=== PATIENT | female | born 1960 | race Caucasian/White ===

== ENCOUNTER 2020-03-08 12:38 | Inpatient (IN) | payer BC, SELFPAY ==
[2020-03-08] VITALS (14 sets, daily range): BP systolic 109–147; BP diastolic 73–99; PULSE 74–94; RESP 16–22; TEMP 36.7–36.8; O2SAT 94–98; BMI 34.2; BMI 32.8
--- NOTE | 2020-03-08 12:44 | NURSING ---
NO OLD EKGS
--- NOTE | 2020-03-08 13:06 | EKG12_ITS ---
Test Reason : REPEAT Blood Pressure : / mmHG Vent. Rate : 085 BPM Atrial Rate : 085 BPM P-R Int : 194 ms QRS Dur : 070 ms QT Int : 378 ms P-R-T Axes : 058 004 019 degrees QTc Int : 449 ms Normal sinus rhythm Septal infarct , age undetermined Abnormal ECG When compared with ECG of 08-MAR-2020 12:46, MANUAL COMPARISON REQUIRED, DATA IS UNCONFIRMED Confirmed by TANYA RUIZ ([id number]), assistant film editor ANU MUNOZ ([id number]) on 03/15/2020 9:12:47 AM Referred By: ELMER Confirmed By:TANYA RUIZ
--- NOTE | 2020-03-08 13:06 | RAD_ITS ---
STUDY: X-RAY CHEST REASON FOR EXAM: Female, 60 years old. STRESS INDUCED CHEST PAIN, LIGHTHEADNESS AND TINGLING IN BILATERAL FINGERS. -- HX OF ANXIETY, HTN AND ASTHMA TECHNIQUE: Single AP portable view of the chest. COMPARISON: None. FINDINGS: The lungs are clear and expanded. There is no demonstrated pleural abnormality. Normal size heart. Normal mediastinum and sukumar. Normal visualized pulmonary arteries. Normal visualized aortic arch and descending thoracic aorta. Normal visualized thoracic spine. Normal visualized ribs, clavicles, and shoulders. There is no demonstrated abnormality of the visualized soft tissue structures of the upper abdomen. RAD/Chest 1 View (Portable) IMPRESSION: Normal x-ray examination of the chest. Electronically Signed: Jarod Kat MD at 14:07 EDT Tel , Service support ,
--- NOTE | 2020-03-08 13:09 | ED.VISSUMM ---
- ER Visit Summary Date of Service: 03/08/20 Chief Complaint: Chest pain History of Present Illness: The patient is a 60 F presenting with chest pain. Patient states that she was at her pain management physician's office. They were discussing her Worker's Compensation. She states she was getting upset. She started having mid chest tightness. She started feeling lightheaded and had bilateral hand tingling as well. She has a history of hypertension and anxiety. She has a family history of early heart disease. She is not a smoker. Denies PE/DVT risk factors. Physical Examination: Vitals are stable. Patient is afebrile. Alert no acute distress. HEENT exam is unremarkable. Neck is supple. Lungs are clear and equal bilaterally. Heart is regular rate and rhythm. Abdomen is soft nontender nondistended. Extremities are unremarkable. Skin is warm and dry. No focal neurologic deficit. Remainder of exam is unremarkable. Emergency Department Course and Treatment: EKG is sinus rhythm rate of 78 with no acute ischemic changes. Chest x-ray shows no acute process. CBC, chemistries unremarkable. Troponin is negative. Patient was given aspirin and nitro per EMS. She is chest pain-free on reevaluation. Due to the onset of her symptoms, delta troponin was obtained. Second troponin is 0.619. Patient remains chest pain-free. Discussed with hospitalist and Dr. Lagunas. She will be started on heparin drip. Patient will be admitted. Disposition: Admission Impression: NSTEMI This note was generated with ATOMOO dictation software. It may contain incorrect words, spelling, and punctuation that were not noted in review of the chart prior to signing ED Disposition - Plan for ED Patient: Referrals: Arik Webber MD [Primary Care Provider] -
[2020-03-08 13:13] LABS: Absolute Lymphocyte Count 1.55 X10^3/uL (0.83-4.51); Basophil# 0.03 X10^3/uL; Basophil% 0.7 % (0-1); Eosinophil# 0.08 X10^3/uL; Eosinophils% 1.9 % (0-5); Hematocrit 36.3 % (37-47); Hemoglobin 12.9 g/dL (12.0-15.0); Lymphocyte # 1.55 X10^3/ul (4.0); Mean Corp Hgb Conc 35.5 g/dL (32-36); Mean Corpuscular Hgb 34.2 pg (27.0-32.0); Mean Corpuscular Volume 96.3 fL (81-99); Mean Platelet Vol. 10.9 fl (6.2-12.0); Monocyte# 0.61 X10^3/uL; Monocyte% 14.2 % (0-10); NRBC Flagged by Analyzer 0 % (0-5); Neutrophil # 2.01 X10^3/uL (2.7-7.7); Neutrophil % 46.5 % (47-70); Platelet Count 211 K/mm3 (150-450); RBC Distribution Width CV 11.9 % (11.6-14.6); RBC Distribution Width SD 41.5 fl (35.1-43.9); Red Blood Count 3.77 M/mm3 (4.2-5.4); White Blood Count 4.3 K/mm3 (4.4-11.0)
[2020-03-08 13:28] LABS: Anion Gap 4 (5-15); BUN 19 mg/dL (7-18); BUN/Creat Ratio 25.9 RATIO (10-20); Calcium,Total 8.6 mg/dL (8.5-10.1); Chloride 106 mmol/L (98-107); Creatinine, Serum 0.74 mg/dL (0.55-1.02); EST Glomerular Filtration Rate 86 mL/min (>60); Est Glom Filt Rate - Afr Amer 104 mL/min (>60); Estimated Creatinine Clearance 68.55 ml/min; Glucose 102 mg/dL (74-106); Potassium 3.7 mmol/L (3.5-5.1); Sodium Level 139 mmol/L (136-145)
[2020-03-08] MEDS: Ondansetron 4 MG/2 ML Vial IV (13:37)
[2020-03-08] MEDS: Morphine 4 MG/ML Syringe IV ×2 (13:37→19:18)
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
[2020-03-08] MEDS: LORazepam 1 MG Tablet PO (17:51)
[2020-03-08] MEDS: Heparin Injection (Vial) 5,000 UNIT/ML VIAL 6000 UNIT IV (17:52)
[2020-03-08 18:21] LABS: Partial Thromboplast Time 27.9 Seconds (24.1-36.2)
--- NOTE | 2020-03-08 19:28 | EKG12_ITS ---
Test Reason : AM EKG Blood Pressure : / mmHG Vent. Rate : 072 BPM Atrial Rate : 072 BPM P-R Int : 212 ms QRS Dur : 070 ms QT Int : 404 ms P-R-T Axes : 060 013 030 degrees QTc Int : 442 ms Sinus rhythm with 1st degree A-V block Low voltage QRS (Limb Leads) Confirmed by RACIEL KNUTSON, MELVIN ([id number]), sound editor FLY GUSTAFSON ([id number]) on 03/14/2020 1:09:55 PM Referred By: ALEKSANDAR Confirmed By:MELVIN SCHRADER MD
--- NOTE | 2020-03-08 19:46 | ECHOD_ITS ---
Version 2 Reason For Study: S/P CA Procedure This was a 2D Doppler, Color Flow transthoracic echocardiogram. Exam performed portable in patient room. Left Ventricle Normal LV size. The estimated ejection fraction is 50-55 %. No evidence for diastolic dysfunction. Hpokinesis of the mid septum. Hypokinesis of the mid anterior wall noted in some views but not in others. Right Ventricle Normal RV size. Normal systolic function. Atria Normal left atrium. Normal right atrium. No doppler evidence for ASD. Mitral Valve There is no mitral valve stenosis. Trivial mitral valve insufficiency. Tricuspid Valve There is no tricuspid stenosis. Trivial tricuspid valve insufficiency. Pulmonary artery systolic pressure is 30-35 mmHg. Aortic Valve Trisinus/trileaflet aortic valve. There is no aortic stenosis. No aortic valve insufficiency. Pulmonic Valve There is no pulmonic valvular stenosis. No pulmonic valve insufficiency. Great Vessels Normal aortic root. Pericardium/Pleural No pericardial effusion. MMode/2D Measurements & Calculations LVIDd: 4.5 cm IVSd: 0.97 cm Ao root diam: 3.1 cm LVIDs: 3.0 cm LVPWd: 0.88 cm LA dimension: 3.3 cm RVDd: 3.2 cm FS: 32.0 % LAV(MOD-bp): 62.4 ml LA A4 area: 20.3 cm2 RA A4 area: 15.9 cm2 LAV(MOD-bp) Indexed: 32.8 ml/m2 LAV(MOD-sp2): 65.6 ml LAV(MOD-sp4): 55.4 ml Time Measurements MV dec time: 0.21 sec Doppler Measurements & Calculations MV E max paresh: 93.8 cm/sec Lat Peak E' Paresh: 12.0 cm/sec Med Peak E' Paresh: 11.4 cm/sec MV A max paresh: 64.2 cm/sec E/E' lat: 7.8 E/E' med: 8.3 MV E/A: 1.5 MV V2 max: 86.8 cm/sec MV P1/2t max paresh: 85.7 cm/sec Ao V2 max: 115.9 cm/sec MV max P.0 mmHg MV P1/2t: 80.9 msec Ao max P.4 mmHg MV V2 mean: 59.6 cm/sec MV dec slope: 310.6 cm/sec2 MV mean P.6 mmHg MVA(P1/2t): 2.7 cm2 MV V2 VTI: 22.6 cm LV V1 max: 108.4 cm/sec MR max paresh: 468.9 cm/sec PA V2 max: 124.2 cm/sec LV V1 max P.7 mmHg MR max P.9 mmHg MR mean paresh: 386.3 cm/sec MR mean P.3 mmHg MR VTI: 162.4 cm TR max paresh: 266.3 cm/sec TR max P.4 mmHg Interpretation Summary No evidence for diastolic dysfunction. Trivial mitral valve insufficiency. The estimated ejection fraction is 50-55 %. Ordering Physician: Yvrose Gimenez Referring Physician: Arik Webber Performed By: Robert Bangura RCS
[2020-03-08] MEDS: 0.9% Normal Saline 1,000 ML 75 ML IV (20:00)
--- NOTE | 2020-03-08 21:01 | EKG12_ITS ---
Test Reason : CP Blood Pressure : / mmHG Vent. Rate : 081 BPM Atrial Rate : 081 BPM P-R Int : 194 ms QRS Dur : 070 ms QT Int : 394 ms P-R-T Axes : 049 011 015 degrees QTc Int : 457 ms Normal sinus rhythm Septal NC, age undetermined, cannot be excluded Confirmed by RACIEL KNUTSON, MELVIN ([id number]), desk editor FLY GUSTAFSON ([id number]) on 03/14/2020 1:10:58 PM Referred By: Confirmed By:MELVIN SCHRADER MD
[2020-03-08] MEDS: TICAGRELOR 90 MG TABLET 180 MG PO (22:47)
[2020-03-08] MEDS: Metoprolol Tartrate 25 MG Tablet 12.5 MG PO (22:47)
[2020-03-08] MEDS: Atorvastatin Calcium 40 MG Tablet PO (22:47)
[2020-03-08] MEDS: buPROPion (SR) 100 MG TABLET.SA 200 MG PO (22:47)
[2020-03-08] MEDS: LORazepam 0.5 MG Tablet PO (22:53)
[2020-03-08] MEDS: Albuterol 2.5 MG/3 ML VIAL.NEB. INHALATION (23:43)
[2020-03-09] VITALS (17 sets, daily range): BP systolic 84–111; BP diastolic 50–75; PULSE 61–77; RESP 14–16; TEMP 36.6–36.7; O2SAT 94–97
[2020-03-09 00:06] LABS: Partial Thromboplast Time 203.6 Seconds (24.1-36.2)
[2020-03-09 05:50] LABS: Absolute Lymphocyte Count 1.65 X10^3/uL (0.83-4.51); Absolute Neutrophil Count 2.6 X10^3/uL (2.0-7.7); Basophil# 0.04 X10^3/uL; Basophil% 0.8 % (0-1); Eosinophil# 0.08 X10^3/uL; Eosinophils% 1.6 % (0-5); Hematocrit 34.1 % (37-47); Hemoglobin 11.6 g/dL (12.0-15.0); Lymphocyte # 1.65 X10^3/ul (4.0); Lymphocyte % 32.8 % (19-41); Mean Corpuscular Hgb 33.4 pg (27.0-32.0); Mean Corpuscular Volume 98.3 fL (81-99); Mean Platelet Vol. 10.6 fl (6.2-12.0); Monocyte# 0.61 X10^3/uL; Monocyte% 12.1 % (0-10); NRBC Flagged by Analyzer 0 % (0-5); Neutrophil # 2.62 X10^3/uL (2.7-7.7); Neutrophil % 52.1 % (47-70); Platelet Count 193 K/mm3 (150-450); RBC Distribution Width CV 12.4 % (11.6-14.6); Red Blood Count 3.47 M/mm3 (4.2-5.4)
--- NOTE | 2020-03-09 05:54 | EKG12_ITS ---
Test Reason : Blood Pressure : / mmHG Vent. Rate : 078 BPM Atrial Rate : 078 BPM P-R Int : 194 ms QRS Dur : 084 ms QT Int : 402 ms P-R-T Axes : 045 -08 022 degrees QTc Int : 458 ms Normal sinus rhythm Normal ECG Confirmed by LIZETTE KNUTSON, DEV ([id number]), web editor FLY GUSTAFSON ([id number]) on 03/16/2020 11:12:09 A M Referred By: ALEJANDRO Confirmed By:CRYSTAL BAUER MD
[2020-03-09 06:06] LABS: Partial Thromboplast Time 56.7 Seconds (24.1-36.2)
[2020-03-09 06:09] LABS: ALB/GLOB Ratio 1.1 RATIO (0.9-2.4); AST(SGOT) 20 U/L (15-37); Alanine Aminotransfer ALT/SGPT 35 U/L (13-56); Albumin, Serum 2.9 g/dL (3.2-5.0); Alkaline Phosphatase 83 U/L (45-117); Anion Gap 2 (5-15); BUN 15 mg/dL (7-18); BUN/Creat Ratio 21.6 RATIO (10-20); Calcium,Total 7.8 mg/dL (8.5-10.1); Chloride 109 mmol/L (98-107); Cholesterol 160 mg/dL (200); EST Glomerular Filtration Rate 92 mL/min (>60); Est Glom Filt Rate - Afr Amer 111 mL/min (>60); Estimated Creatinine Clearance 72.47 ml/min; Globulin 2.7 g/dL (2.2-4.2); Glucose 101 mg/dL (74-106); High Density Lipoprotein 59 mg/dL; Potassium 3.7 mmol/L (3.5-5.1); Protein, Total 5.6 g/dL (6.4-8.2); Sodium Level 140 mmol/L (136-145); Triglycerides 78 mg/dL; Very Low Density Lipoprotein 16 mg/dL (5-40)
[2020-03-09] MEDS: Aspirin E.C. 81 MG Tablet PO (06:26)
[2020-03-09] MEDS: TICAGRELOR 90 MG TABLET PO (06:26)
[2020-03-09] MEDS: Budesonide Respules 0.5 MG/2 ML AMPUL.NEB. INHALATION (07:06)
[2020-03-09] MEDS: Albuterol 2.5 MG/3 ML VIAL.NEB. INHALATION ×2 (07:06→12:50)
--- NOTE | 2020-03-09 07:53 | CASEMGMT ---
According to the [facility] website, the following are in-network tertiary facilities: [facility], [facility], [facility], [facility], [facility], [facility], [facility], [place], [facility], and . Simon TIRADO CM
[2020-03-09] MEDS: Acetaminophen 325 MG Tablet 650 MG PO (08:17)
--- NOTE | 2020-03-09 09:55 | CASEMGMT ---
CELESTINO RAMIREZ assessment: Face to Face with patient for initial transition planning/care coordination assessment. CELESTINO RAMIREZ introduced self and role at [facility], pt voices understanding and consents to assessment at this time. Pt is sitting up in bed in no distress at this time. Pt is A/Ox4 at this time and answers all questions appropriately at this time. Pt is awaiting heart cath at this time and sig other is at bedside during assessment. Care providers, pharmacy, and demographics verified at this time. Presentation: Pt was at a physician office and involved in a stressful situation-pt developed CP, lightheadedness/tingling in bilat fingers-hx of anxiety, htn Admitting dx: Acute NSTEMI PCP: [facility] Specialists: [facility] Insurance: [place] Prescription Benefit: [place] Living Will/HPOA: Pt states does not have LW/HPOA but would like info at this time. Monica SW aware, voices understanding. LNOK: Sixto Chandra, sig other Living Arrangements: Pt states lives with sig other in 2 story home and states no concerns at home at this time. Pt states is independent with ADL's. Transportation: Pt states drives self and states no transportation concerns at this time. DME/HHC: Pt states no current DME or need for any at this time. Pt states no hx of HHC or SNF in the past. Pt states no concerns with going home at time of discharge. 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 Pt states does not smoke but does drink ETOH daily. Pt states no further concerns/needs at this time. CM to follow for any further discharge planning/needs. Advised pt to ask for CM if any further questions/concerns/needs arise, voices understanding. Pt Goal: Home Plan[place] CELESTINO RAMIREZ
[2020-03-09] MEDS: 0.9% Normal Saline 1,000 ML 75 ML IV (10:10)
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
[2020-03-09] MEDS: Lisinopril 20 MG Tablet PO (11:18)
[2020-03-09] MEDS: Metoprolol Tartrate 25 MG Tablet 12.5 MG PO (11:18)
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
[2020-03-09] MEDS: buPROPion (SR) 100 MG TABLET.SA 200 MG PO (14:08)
[2020-03-09] MEDS: Hydroxychloroquine 200 MG Tablet PO (14:08)
[2020-03-09] MEDS: Escitalopram Oxalate 20 MG Tablet PO (14:09)
--- NOTE | 2020-03-09 14:21 | PCM.DC ---
- Discharge Diagnoses Current Active Problems: Current Active and Chronic Problems Lumbar disc disease (Chronic) Lumbar stress fracture (Chronic) NSTEMI (non-ST elevated myocardial infarction) (Acute) Asthma (Chronic) Osteoarthritis (Chronic) Depression (Chronic) Hypertension (Chronic) You will use the following diet at home:: Cardiac Your food should be the consistency of: Regular Your liquids should be the consistency of: Regular/Thin Discharge Activity: Return to Normal Activity Allergies/Adverse Reactions: Allergies meloxicam [From Mobic] Allergy (Verified 03/08/20 13:07) Rash Sulfa (Sulfonamide Antibiotics) Allergy (Verified 03/08/20 13:07) Anaphylaxis Medications to take at Discharge Albuterol IH (ProAir) [Proair Hfa] 1 puff INHALATION Q4H PRN PRN 03/08/20 Bupropion HCl [Bupropion HCl ER] 200 mg PO BID 03/08/20 Escitalopram Oxalate 20 mg PO DAILY 03/08/20 Fluticasone Propion/Salmeterol [Wixela 100-50 Inhub] 1 ea IH BID 03/08/20 Hydroxychloroquine Sulfate 200 mg PO DAILY 03/08/20 Lorazepam 0.5 mg PO DAILY 03/08/20 Nabumetone 750 mg PO BID 03/08/20 Lisinopril [Zestril] 20 mg PO DAILY #30 tab 03/09/20 Metoprolol Tartrate [Lopressor (beta hai)] 12.5 mg PO BID #30 tab 03/09/20 The following prescriptions were given: Metoprolol Tartrate [Lopressor (beta hai)] 12.5 mg PO BID #30 tab Transmission Status: Pending to [facility]/pharmacy #[id number] Lisinopril [Zestril] 20 mg PO DAILY #30 tab Transmission Status: Pending to [facility]/pharmacy #[id number] Primary Care Physician: Arik Webber MD [Primary Care Provider] - Please follow up with your Primary Care Physician in: 1-2 weeks Test Results: Test results from this visit will be discussed in further detail at your follow-up appointment, if applicable. Please Follow Up With: Eduar Lagunas MD When: as directed Proposed Discharge Date: 03/09/20
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
--- NOTE | 2020-03-12 12:52 | CL.D_ITS ---
Patient Name: BRIAN VERA Study Date: 03/09/2020 Performing: Ruchi Lagunas MD Ht: 62.99 inches 160 cm : 1960 Wt: 185.19 lbs 84 kg Age: 60 Gender: female BSA: 1.87 PROCEDURE(S) PERFORMED [id number]/LV CLINICAL PROFILE AND INDICATIONS Indications: ACS <= 24 hrs Heart Failure: None Stress/Imaging Stress/Image Study Performed: No CAD Presentations: Non-STEMI. Symptom onset Date/Time: Time Not Available CONCLUSIONS Takotsubo cardiomyopathy. EF 45%. No significant CAD, or MR RECOMMENDATIONS DESCRIPTION OF PROCEDURE The patient arrived to the procedure lab. The risks and benefits of the procedure as well as a full d escription of our services here and current unavailability of surgical backup were fully explained to the patient and/or their significant other prior to the catheterization. The Timeout was completed, verifying the correct patient and procedure. The patient's procedural site was prepped and draped in the usual fashion. Local anesthetic was given subcutaneously to right radial region with Lidocaine 2% . Using a modified Seldinger technique, arterial access was obtained via the right radial artery, a 6 Fr sheath was inserted. Left Coronary Artery selective angiography was performed in multiple views u sing a 5 Fr. JL3.5 catheter. Left Ventriculography was performed in GEE projection using a 5 Fr. JR 4 . LV to AO pullback pressures were then recorded. Right Coronary Artery selective angiography was the n performed in multiple views using a 5 Fr. JR 4 catheter.The arterial sheath was pulled and a TR Band was applied for hemostasis w/ 11ml air CORONARY ANGIOGRAPHY DOMINANCE: Right Dominant LEFT HEART ASSESSMENT Left Ventricular Ejection Fraction: by LV Gram 45 % Abnormal LV wall motion. Mid LV hypokinesis consistent with apical sparing Takotsubo CM LEFT MAIN: Angiographically normal LEFT ANTERIOR DESCENDING ARTERY: Angiographically normal CIRCUMFLEX ARTERY: Angiographically normal RIGHT CORONARY ARTERY: Angiographically normal VALVE FINDINGS: No Aortic Valve Stenosis No Mitral Insufficency COMPLICATIONS No Complications PROCEDURE MEDICATIONS Versed 1 mg IV Fentanyl 50 mcg IV Oxygen: 2 L/min via nasal cannula Heparin given IA 03/09/2020 12:06:23 Verapamil 2.5mg, Ntg 100mcgs, 3000 units of Heparin given IA 03/09/2020 12:06:23 SUMMARY OF HEMODYNAMIC DATA Time AIR REST AO 110/71 (88) SA 12:08:52 ECG 12:09:19 LV 115/0, 18 12:14:05 LV 109/1, 17 12:14:11 LV 114/1, 18 12:14:58 LVp 115/71, 73 12:15:12 AOp 117/71 (91) 12:15:17 Signed By Ruchi Lagunas MD On 03/12/2020 12:52:01 Ruchi Lagunas MD
== END 2020-03-09 17:53 | disposition home or self-care (01) | DRG 287 ==
LOC: ED 13:36 → PCU 17:48
PROVIDERS: Admitting Provider Hospitalist; Emergency Provider Emergency Medicine; PCP Family Medicine Geriatric Medicine; Visit Provider Internal Medicine
DX: I51.81 Takotsubo syndrome (principal); I10 Essential (primary) hypertension; F41.9 Anxiety disorder, unspecified; J45.909 Unspecified asthma, uncomplicated; M19.90 Unspecified osteoarthritis, unspecified site; F32.9 Major depressive disorder, single episode, unspecified; G89.29 Other chronic pain; Z79.899 Other long term (current) drug therapy; M51.9 Unspecified thoracic, thoracolumbar and lumbosacral intervertebral disc disorder
CPT/HCPCS: 36415; 71045; 80048; 80053; 80061; 84484; 85025; 85730; 93005; 93306; 93458; 94640; 99152; 99153; 99251; 99285; J7030; Q9957; Q9967; A4216; C1769; C1894; G0463; J2405